=== PATIENT | female | born 1985 | race African-American/Black ===

== ENCOUNTER 2022-04-25 18:20 | Emergency (ER) | payer OTHER, MEDICARE ==
[2022-04-25 19:25] LABS: #Basophils 0.2 thou/uL (0.0-0.2); #Eosinphils 0.4 thou/uL (0.0-0.7); #Lymphocytes 1.1 thou/uL (1.20-3.40); #Monocytes 0.6 thou/uL (0.11-0.59); #Neutrophils 5.5 thou/uL (1.40-6.50); %Basophils 2.8 % (0.0-1.0); %Eosinophils 4.6 % (0.0-10.0); %Lymphocytes 14.2 % (21.0-51.0); %Monocytes 8.1 % (0.0-10.0); %Neutrophils 70.3 % (42.0-75.0); Anisocytosis SLIGHT = 6-15 cells (100X) (0-5/hpf); Hemoglobin 10.4 g/dL (12.0-16.0); Hypochromia SLIGHT = 6-15 cells (100X) (0-5/hpf); Large Platelets SLIGHT; MDiff Complete? YES; Mean Corpuscular HGB CONC 32.5 g/dL (32.0-36.0); Mean Corpuscular Hemoglobin 28.2 pg (27.0-31.0); Mean Corpuscular Volume 86.8 fL (78.0-98.0); Mean Platelet Volume 10.8 fL (7.4-10.4); Platelet Count 150 thou/uL (130-400); Platelet Morphology Comment Appears Adequate; RBC Distribution Width 14.8 % (11.5-14.5); Red Blood Cell (RBC) Count 3.69 mill/uL (4.20-5.40); White Blood Cell (WBC) Count 7.8 thou/uL (4.8-10.8)
[2022-04-25 19:28] LABS: ALT (SGPT) 11 U/L (8-55); AST (SGOT) 10 U/L (5-34); Albumin 3.6 g/dL (3.5-5.0); Alkaline Phosphatase 147 U/L (40-110); Anion Gap 27 mmol/L (10-20); BUN (Urea Nitrogen) 90 mg/dL (7.0-18.7); Bilirubin, Total 0.3 mg/dL (0.2-1.2); CK (CPK) 93 U/L (29-168); Calc. Creatinine Clearance 0 mL/min (70-130); Calcium 9.6 mg/dL (7.8-10.44); Carbon Dioxide 19 mmol/L (22-29); Chloride 100 mmol/L (98-107); Estimated GFR 3; Globulin 3.6 g/dL (2.4-3.5); Glucose 69 mg/dL (70-105); Magnesium 2.2 mg/dL (1.6-2.6); Protein, Total 7.2 g/dL (6.0-8.3); Sodium 138 mmol/L (136-145)
[2022-04-25 19:34] LABS: Potassium 7.6 mmol/L (3.5-5.1)
[2022-04-25] MEDS ORDERED: Dextrose 50% Abboject 50 ML SYRINGE ONE (19:53)
[2022-04-25] MEDS ORDERED: Insulin Regular 300 UNITS/3 ML VIAL ONE (19:53)
[2022-04-25] MEDS ORDERED: Calcium Gluc 4.6 MEQ/10 ML (100 MG/ML) ONE (19:53)
[2022-04-25 21:40] LABS: Anion Gap 30 mmol/L (10-20); BUN (Urea Nitrogen) 90 mg/dL (7.0-18.7); Calc. Creatinine Clearance 0 mL/min (70-130); Calcium 10.1 mg/dL (7.8-10.44); Carbon Dioxide 16 mmol/L (22-29); Chloride 100 mmol/L (98-107); Estimated GFR 3; Glucose 80 mg/dL (70-105); Sodium 139 mmol/L (136-145)
[2022-04-25 21:43] LABS: Potassium 6.7 mmol/L (3.5-5.1)
== END 2022-04-25 22:23 | disposition short-term general hospital (02) ==
LOC: MADERS 18:20
DX: E87.5 Hyperkalemia (principal); I13.2 Hypertensive heart and chronic kidney disease with heart failure and with stage 5 chronic kidney disease, or end stage renal disease; E11.22 Type 2 diabetes mellitus with diabetic chronic kidney disease; N18.6 End stage renal disease; I50.1 Left ventricular failure, unspecified; R09.02 Hypoxemia; R79.1 Abnormal coagulation profile; E11.40 Type 2 diabetes mellitus with diabetic neuropathy, unspecified; E78.5 Hyperlipidemia, unspecified; G47.33 Obstructive sleep apnea (adult) (pediatric); I73.9 Peripheral vascular disease, unspecified; E11.319 Type 2 diabetes mellitus with unspecified diabetic retinopathy without macular edema; Z99.2 Dependence on renal dialysis
CPT/HCPCS: 36415; 71045; 80053; 82550; 83605; 83735; 85025; 85379; 86140; 93005; 94760; 96374; 96375; J0610; J1815; J7999

== ENCOUNTER 2022-05-10 14:34 | Outpatient (CLI) | payer MEDICARE, MEDICAID ==
[2022-05-10 23:00] LABS: HBSAg Index 0.26 S/CO (0-0.99); Hep B Core Total Ab Non-Reactive (NonReactive); Hep B Core Total Index 0.12 S/CO (0-0.79); Hep B Surf Ag Non-Reactive S/CO (NonReactive)
[2022-05-10 23:01] LABS: HBSAB Concentration 38.63 mIU/mL; Hep B Surf AB Reactive (NonReactive)
== END 2022-05-10 14:35 | disposition home or self-care (01) ==
LOC: MADLAB 14:34
DX: N18.6 End stage renal disease (principal); Z99.2 Dependence on renal dialysis
CPT/HCPCS: 86704; 86706; 87340